=== PATIENT | male | born 1985 | race American Indian/Alaskan Native ===

== ENCOUNTER 2019-04-19 21:48 | Outpatient (CLI) | payer OTHER | END 2019-04-19 23:59 | disposition critical access hospital (66) | LOC: EMS 21:48 | PROVIDERS: ATTEND Surgery | DX: R11.0 Nausea (principal); R19.7 Diarrhea, unspecified | CPT/HCPCS: A0425; A0429 ==

== ENCOUNTER 2019-04-19 22:05 | Emergency (ER) | payer OTHER ==
[2019-04-19] MEDS ORDERED: BUPRENORPHINE 0.3 MG/ML VIAL IVP ONE (22:23)
[2019-04-19] MEDS ORDERED: SODIUM CHLORIDE 0.9% 1,000 ML IV ONE (22:23)
--- NOTE | 2019-04-19 22:32 | ED Physician Documentation ---
History of Present Illness - Stated complaint Stated Complaint: N/V/LIGHTHEADED - Chief complaint Chief Complaint: General - History obtained from History obtained from: Patient, Police - History of Present Illness Timing: Yesterday (34-year-old gentleman currently incarcerated. He was on Suboxone and his last dose was Monday, he was on a maintenance program. Since he is been incarcerated he has not had any since. Note made that he is in [facility], not [facility] where they have a nurse practitioner that manages withdrawal symptoms. He is having severe body wide pain, nausea, diarrhea, his skin hurts.) Review of Systems Constitutional: reports: Chills, Sweats Cardiac: denies: Chest pain / pressure GI: reports: Abdominal Pain, Nausea, Vomiting, Diarrhea PD PAST MEDICAL HISTORY - Past Medical History Cardiovascular: Hypertension - Present Medications Home Medications: Ambulatory Orders Medication Instructions Recorded Confirmed Buprenorphine HCl/Naloxone HCl 6 mg 04/19/19 [Suboxone 2-0.5 mg Sl tab] cloNIDine [Catapres] 6 mg 04/19/19 - Allergies Allergies/Adverse Reactions: Allergies Allergy/AdvReac Type Severity Reaction Status Date / Time No Known Drug Allergies Allergy Verified 04/19/19 22:13 - Social History Does the pt smoke?: Yes Smoking Status: Current every day smoker Does the pt have substance abuse?: Yes PD ED PE NORMAL - Vitals Vital signs reviewed: Yes - General General: Alert and oriented X 3, Other (He is shaky and quivery, moaning) - HEENT HEENT: Other (Dilated pupils) - Neck Neck: Supple, no meningeal sign, No bony TTP - Cardiac Cardiac: RRR, No murmur - Respiratory Respiratory: No respiratory distress, Clear bilaterally - Abdomen Abdomen: Non tender - Derm Derm: Other (Sweaty) - Neuro Neuro: Alert and oriented X 3, Normal speech Results - Vitals Vitals: Vital Signs - 24 hr 04/19/19 22:11 Temperature 36.8 C Heart Rate 89 Respiratory 13 Rate Blood Pressure 147/86 H O2 Saturation 95 Oxygen O2 Source Room air PD MEDICAL DECISION MAKING - ED course ED course: This is a 34-year-old gentleman that is undergoing narcotic withdrawal. He is given IV fluids and IV buprenorphine. I discussed with the [facility] nurse practitioner at [facility], Monik Chacon, she cannot treat him in [facility]., They tried clonidine earlier in the day but that was unhelpful. They are considering him releasing him early. Departure - Departure Disposition: 01 Home, Self Care Clinical Impression: Narcotic withdrawal Condition: Good Record reviewed to determine appropriate education?: Yes Instructions: ED Withdrawal Narcotic Comments: Ideally he should be restarting his Suboxone as soon as possible. Return if worse.
[2019-04-19] MEDS ORDERED: DIPHENOX/ATROPINE 2.5/0.025 MG TABLET PO STA (23:26)
[2019-04-19] MEDS ORDERED: ACETAMINOPHEN 325 MG TABLET PO STA (23:28)
[2019-04-19 23:38] VITALS: BP 124/84
== END 2019-04-19 23:37 | disposition home or self-care (01) ==
LOC: ED 22:05
DX: F19.939 Other psychoactive substance use, unspecified with withdrawal, unspecified (principal); I10 Essential (primary) hypertension; F17.200 Nicotine dependence, unspecified, uncomplicated
CPT/HCPCS: 93005; 96361; 96374; 99282; 99283; A9270; J0592

== ENCOUNTER 2019-04-20 12:35 | Outpatient (CLI) | payer MEDICAID | END 2019-04-20 12:36 | disposition critical access hospital (66) | LOC: EMS 12:35 | PROVIDERS: ATTEND Surgery | DX: R10.9 Unspecified abdominal pain (principal); R51 Headache | CPT/HCPCS: A0425; A0429; A0999 ==

== ENCOUNTER 2019-04-20 12:56 | Emergency (ER) | payer MEDICAID, OTHER ==
[2019-04-20] MEDS ORDERED: SODIUM CHLORIDE 0.9% 1,000 ML IV ONE (13:48)
[2019-04-20] MEDS ORDERED: ONDANSETRON 4 MG/2 ML VIAL IVP STA (13:48)
[2019-04-20] MEDS ORDERED: BUPRENORPHINE 0.3 MG/ML VIAL IVP STA (13:49)
--- NOTE | 2019-04-20 14:02 | ED Physician Documentation ---
History of Present Illness - Stated complaint Stated Complaint: ABD PX - Chief complaint Chief Complaint: Abd Pain - History obtained from History obtained from: Patient - History of Present Illness Timing: Yesterday Pain level max: 10 Pain level now: 10 - Additonal information Additional information: 34-year-old male presents to the emergency department after being off of his Suboxone for the past 4 days. He has been maintained on this for the past year. Has a history of IV drug abuse in the past. [facility]. He was seen here last night, given Suboxone and symptoms improved. Symptoms returned today and he was released from longterm and brought here. He denies any fevers. Has nausea, vomiting, diarrhea and abdominal cramping. Nothing makes it better or worse. Review of Systems Ten Systems: 10 systems reviewed and negative Constitutional: denies: Fever, Chills Cardiac: denies: Chest pain / pressure Respiratory: denies: Cough GI: reports: Abdominal Pain, Nausea, Vomiting, Diarrhea. denies: Hematemesis, Bloody / black stool Skin: denies: Rash Musculoskeletal: denies: Neck pain, Back pain Neurologic: denies: Headache PD PAST MEDICAL HISTORY - Past Medical History Past Medical History: Yes Cardiovascular: Hypertension - Present Medications Home Medications: Ambulatory Orders Medication Instructions Recorded Confirmed Buprenorphine HCl/Naloxone HCl 6 mg 04/19/19 [Suboxone 2-0.5 mg Sl tab] cloNIDine [Catapres] 6 mg 04/19/19 - Allergies Allergies/Adverse Reactions: Allergies Allergy/AdvReac Type Severity Reaction Status Date / Time No Known Drug Allergies Allergy Verified 04/20/19 13:00 - Social History Does the pt smoke?: Yes Smoking Status: Current every day smoker Does the pt have substance abuse?: Yes - Family History Family history: reports: Non contributory - Immunizations Immunizations are current?: Yes PD ED PE NORMAL - Vitals Vital signs reviewed: Yes - General General: Alert and oriented X 3, Other (appears uncomfortable) - HEENT HEENT: PERRL, Moist mucous membranes, Pharynx benign - Neck Neck: Supple, no meningeal sign - Cardiac Cardiac: RRR, Strong equal pulses - Respiratory Respiratory: No respiratory distress, Clear bilaterally - Abdomen Abdomen: Soft, Non tender, Non distended - Derm Derm: Warm and dry, No rash - Extremities Extremities: No edema, No calf tenderness / cord - Neuro Neuro: Alert and oriented X 3, maintenance mechanic 2-12 intact, No motor deficit, No sensory deficit, Normal speech - Psych Psych: Normal mood, Normal affect Results - Vitals Vitals: Vital Signs - 24 hr 04/20/19 04/20/19 04/20/19 12:57 14:11 14:59 Temperature 36.7 C Heart Rate 101 H 87 74 Respiratory 16 16 14 Rate Blood Pressure 155/88 H 153/122 H 118/63 O2 Saturation 99 100 100 Oxygen O2 Source Room air - Labs Labs: Laboratory Tests 04/20/19 04/20/19 04/20/19 13:57 13:57 15:11 WBC 9.7 RBC 4.49 L Hgb 13.0 L Hct 38.2 L MCV 85.1 MCH 29.0 MCHC 34.0 RDW 12.5 Plt Count 274 MPV 9.6 Neut # (Auto) 7.5 H Lymph # (Auto) 1.6 Harmon # (Auto) 0.5 Eos # (Auto) 0.0 Baso # (Auto) 0.0 Absolute Nucleated RBC 0.00 Nucleated RBC % 0.0 Sodium 140 Potassium 3.5 Chloride 106 Carbon Dioxide 22 Anion Gap 12.0 BUN 14 Creatinine 0.8 Estimated GFR (MDRD) 111 Glucose 110 H Calcium 9.8 Total Bilirubin 2.7 H AST 68 H ALT 56 Alkaline Phosphatase 42 Total Protein 7.8 Albumin 5.0 Globulin 2.8 Albumin/Globulin Ratio 1.8 Lipase 27 Urine Color YELLOW Urine Clarity CLEAR Urine pH 8.5 H Ur Specific Kingsley 1.010 Urine Protein NEGATIVE Urine Glucose (UA) NEGATIVE Urine Ketones NEGATIVE Urine Occult Blood NEGATIVE Urine Nitrite NEGATIVE Urine Bilirubin NEGATIVE Urine Urobilinogen 0.2 (NORMAL) Ur Leukocyte Esterase NEGATIVE Ur Microscopic Review NOT INDICATED Urine Culture Comments NOT INDICATED Urine Opiates Screen NEGATIVE Ur Oxycodone Screen NEGATIVE Urine Methadone Screen NEGATIVE Ur Propoxyphene Screen NEGATIVE Ur Barbiturates Screen NEGATIVE Ur Tricyclics Screen NEGATIVE Ur Phencyclidine Scrn NEGATIVE Ur Amphetamine Screen NEGATIVE U Methamphetamines Scrn NEGATIVE U Benzodiazepines Scrn NEGATIVE Urine Cocaine Screen NEGATIVE U Cannabinoids Screen POSITIVE H PD MEDICAL DECISION MAKING - ED course Complexity details: reviewed results, re-evaluated patient, considered differential, d/w patient ED course: Patient appears to be going through narcotic withdrawal. He is normally maintained on Suboxone. He has not been getting this in longterm. Symptoms resolved with IV buprenorphine. Also given Zofran and IV fluids. Feels much better. He apparently was released from longterm today, so he will go home and be restarted on his Suboxone. Patient counseled regarding signs and symptoms for which I believe and urgent re-evaluation would be necessary. Patient with good understanding of and agreement to plan and is comfortable going home at this time This document was made in part using voice recognition software. While efforts are made to proofread this document, sound alike and grammatical errors may occur. Departure - Departure Disposition: 01 Home, Self Care Clinical Impression: Narcotic withdrawal Condition: Good Instructions: ED Withdrawal Narcotic Follow-Up: your,doctor in 1 week [Other] Comments: Return if you worsen. Resume your Suboxone tonight when you get home. Discharge Date/Time: 04/20/19 16:40
[2019-04-20 14:04] LABS: BASOPHILS % (AUTO) 0.4 %; EOSINOPHILS % (AUTO) 0.4 %; LYMPHOCYTES # (AUTO) 1.6 10^3/uL (1.5-3.5); LYMPHOCYTES % (AUTO) 16.2 %; MEAN CORPUSCULAR VOLUME 85.1 fL (80.0-94.0); MEAN PLATELET VOLUME 9.6 fL (7.4-11.4); MONOCYTES # (AUTO) 0.5 10^3/uL (0.0-1.0); MONOCYTES % (AUTO) 5.3 %; NEUTROPHILS # (AUTO) 7.5 10^3/uL (1.5-6.6); NEUTROPHILS % (AUTO) 77.2 %; PLT - PLATELET COUNT 274 10^3/uL (130-450); RED BLOOD COUNT 4.49 10^6/uL (4.70-6.10); RED CELL DISTRIBUTION WIDTH 12.5 % (12.0-15.0); WHITE BLOOD COUNT 9.7 x10^3/uL (4.8-10.8)
[2019-04-20 14:17] LABS: ALBUMIN/GLOBULIN RATIO 1.8 (1.0-2.2); BILIRUBIN,TOTAL 2.7 mg/dL (0.2-1.0); CALCIUM 9.8 mg/dL (8.5-10.3); CREATININE 0.8 mg/dL (0.6-1.2); TOTAL PROTEIN 7.8 g/dL (6.7-8.2)
[2019-04-20 15:00] VITALS: BP 118/63
[2019-04-20 15:16] LABS: MUDS CUTOFF CONCENTRATIONS CUTOFF CONC BELOW:
[2019-04-20 15:19] LABS: BILIRUBIN,URINE NEGATIVE (NEGATIVE); GLUCOSE, URINE (UA) NEGATIVE (NEGATIVE); KETONES,URINE (UA) NEGATIVE (NEGATIVE); LEUKOCYTE ESTERASE, URINE NEGATIVE (NEGATIVE); NITRITE,URINE NEGATIVE (NEGATIVE); OCCULT BLOOD,URINE NEGATIVE (NEGATIVE); PH,URINE 8.5 PH (5.0-7.5); PROTEIN,URINE NEGATIVE (NEGATIVE); UROBILINOGEN,URINE 0.2 (NORMAL) E.U./dL (NORMAL)
[2019-04-20 15:24] LABS: CLARITY,URINE CLEAR (CLEAR)
[2019-04-20 15:31] LABS: AMPHETAMINE SCREEN,URINE NEGATIVE (NEGATIVE); BENZODIAZEPINES SCREEN, URINE NEGATIVE (NEGATIVE); COCAINE SCREEN URINE NEGATIVE (NEGATIVE); METHADONE SCREEN, URINE NEGATIVE (NEGATIVE); METHAMPHETAMINES SCREEN, URINE NEGATIVE (NEGATIVE); OPIATE SCREEN, URINE NEGATIVE (NEGATIVE); OXYCODONE SCREEN, URINE NEGATIVE (NEGATIVE); PROPOXYPHENE SCREEN, URINE NEGATIVE (NEGATIVE); TRICYCLIC ANTIDEPRESSANT,URINE NEGATIVE (NEGATIVE)
== END 2019-04-20 16:40 | disposition home or self-care (01) ==
LOC: EDUNIT# → ED 12:56
DX: F19.239 Other psychoactive substance dependence with withdrawal, unspecified (principal); I10 Essential (primary) hypertension; F17.200 Nicotine dependence, unspecified, uncomplicated
CPT/HCPCS: 36415; 80053; 80306; 81003; 83690; 85025; 96361; 96374; 96375; 99283; 99284; J0592; 81001; 87086